=== PATIENT | female | born 1960 | race Caucasian/White ===

== ENCOUNTER 2016-06-16 20:00 | Observation (INO) ==
[2016-06-16] MEDS ORDERED: SODIUM CHLORIDE 0.9% 1,000 ML IV STA (20:59)
[2016-06-16 21:23] LABS: Basophils % 0.7 % (0.0-0.8); Eosinophils % 0.7 % (0.00-10.9); Hematocrit 43.5 VOL% (35.7-47.0); Hemoglobin 14.6 GM/DL (12.0-16.0); Immature Granulocytes % 0.7 %; Immature Granulocytes Absolute 0.04 #; Lymphocytes # 1.4 10*3/uL (1.4-4.0); Lymphocytes % 23.8 % (21.3-54.2); Mean Corpuscular HGB Conc 33.6 GM/DL (32-36); Mean Corpuscular Hemoglobin 29 PG (27-34); Mean Corpuscular Volume 87.2 FL (87-102); Mean Platelet Volume 11.2 FL (9.6-12.0); Monocytes # 0.8 10*3/uL (0.11-0.8); Monocytes % 12.6 % (1.7-12.7); Neutrophils # 3.7 10*3/uL (1.4-7.4); Neutrophils % 61.5 % (38.7-73.9); Platelet Count 247 10*3/uL (130-400); Red Blood Count 4.99 10*6/uL (3.8-5.5); Red Cell Distribution Width 12.7 % (9.3-17.3)
--- NOTE | 2016-06-16 21:50 | XRay Report ---
XR chest 2V Indication: Burning sensation in chest. Comparison: None. Technique: PA and lateral chest x-ray was performed. Findings: The heart size is within normal limits. The mediastinal contour demonstrates no significant abnormality. The lungs are clear. Bones and soft tissues demonstrate no acute abnormality. Impression: 1. No active cardiopulmonary disease. 06/16/2016 9:47 PM PROCEDURE INTERPRETED AT [facility] DEPARTMENT OF RADIOLOGY Final Report Signed by: Dr. Leon Kevin
[2016-06-16 21:51] LABS: Calcium 8.4 MG/DL (8.5-10.1); Free T4 (Free Thyroxine) 1.11 NG/DL (0.76-1.46); Magnesium 2.1 MG/DL (1.8-2.4); Osmolality,Calculated 288.7 MOS/KG (273-304); Potassium 4.1 MMOL/L (3.5-5.1); Thyroid Stimulating Hormone 3.35 uIU/ml (0.358-3.74)
[2016-06-16 21:53] LABS: Troponin I Only 0.061 NG/ML (0.00-0.045)
[2016-06-16] MEDS ORDERED: ASPIRIN 325 MG TABLET PO STA (22:27)
[2016-06-16] MEDS ORDERED: ASPIRIN 325 MG TABLET ONE (22:40)
--- NOTE | 2016-06-16 22:55 | Emergency Department Note ---
Josiah Perez Emily, am scribing for, and in the presence of, Gino Hernandez DO 21: 06. IDavid Sebastian, DO, personally performed the services described in this documentation, ascribed by Ronna Rahman in my presence, and it is both accurate and complete . Arrival - Arrival Chief Complaint: Arrhythmia/Palpitations Stated Complaint: svt ED Nursing Triage Note: pt arrives ems from home, complaint of sudden cp while sitting in chair, states it started in throat radiating to her chest. pt met ems , upon their arrival hr was in 214 range. pt given amiodorone 6 mg and pt immediately converted to normal hr. pt currently complains of no cp. pt seen in clinic 2 days ago and given decadron & arrythmiacin, she was neg for flu/strep. Mode of Arrival: Stretcher Limitations: No Limitations Source: Patient - History of Present Illness HPI Narrative: Pt is a 56 y/o female who came to ED by EMS with c/o sudden rapid heart palpitations and chest pain that started in throat radiating to her chest while sitting on the couch earlier this evening. Pt was seen at , in which given adenosine 6 mg and pt immediately converted to normal heart rate. Pt currently denies chest pain or heart palpitations in ED. Pt seen in clinic on , June 13, 2016, and given decadron & azithromycin, although she was neg for flu/strep. She's never had an episode like this before. She has no smoking history. No family history of cardiac disease. Onset (ago): hour(s) Consistency: intermittent, now resolved Severity: mild Severity scale (1-10): 2 Quality: sharp Allergies/Adverse Reactions: Allergies Allergy/AdvReac Type Severity Reaction Status Date / Time iodine Allergy Difficulty Verified 02/22/15 19:22 Breathing latex Allergy Difficulty Verified 02/22/15 19:22 Breathing Review of System - Review of System 12 point system: reviewed and no additional remarkable complaints except as stated - Review of System Constitutional: Absent: chills, fever Respiratory: Absent: respiratory distress Cardiovascular: Present: chest pain (radiated from neck; now resolved), palpitations (rapid; now resolved) Gastrointestinal: Absent: abdominal pain, nausea, vomiting Musculoskeletal: Present: neck pain (started in neck radiates down to chest; now resolved). Absent: arm pain, back pain, leg pain Skin: Absent: rash Neurological: Absent: headache, numbness, paresthesias, abnormal gait Psychiatric: Absent: anxiety Medical,Surgical,& Family Hx - Medical History Respiratory: History of: Asthma - Social History Smoking Status: Never smoker Frequency of Alcohol Use: None Type of Drug Use: None Exam Vital Signs: Vital Signs Temperature 97.1 F L 06/16/16 20:00 Pulse Rate 111 H 06/16/16 20:00 Respiratory Rate 18 06/16/16 20:00 Blood Pressure 144/93 06/16/16 20:00 O2 Sat by Pulse Oximetry 98 06/16/16 20:00 - General General appearance: alert, in no apparent distress - Head Head exam: Present: atraumatic, normocephalic - Eye Eye exam: Present: PERRL, EOMI - ENT ENT exam: Present: mucous membranes moist. Absent: mucous membranes dry - Neck Neck exam: Present: full ROM. Absent: tenderness - Chest Chest inspection: Present: symmetric chest wall rise. Absent: tenderness - Respiratory Respiratory exam: Present: normal lung sounds bilaterally. Absent: respiratory distress - Cardiovascular Cardiovascular exam: Present: regular rate, normal rhythm, normal heart sounds - Abdominal Exam Abdominal exam: Present: soft. Absent: distention, tenderness - Extremities Exam Extremities exam: Present: full ROM. Absent: tenderness, pedal edema - Neurological Exam Neurological exam: Present: alert, oriented X3. Absent: motor sensory deficit - Psychiatric Psychiatric exam: Present: normal affect, normal mood - Skin Skin exam: Present: warm, dry Course Course Narrative: She has been resting comfortably while in the emergency department. Her initial EKG shows sinus tachycardia, no evidence of LVH. Normal QTC. She has normal O2 sats and normal blood pressure. CBC, BMP, troponin 0.06, TSH otherwise labs unremarkable Chest x-ray neg 1LNS given with improvement in HR to 80s. ASA 325mg given. Heart strain/demand vs questionable CAD. Hospitalist consulted and will admit. Results - Labs CBC & BMP: 06/16/16 21:00 06/16/16 21:00 Lab Results: I have reviewed the patients labs Labs: Laboratory Tests 06/16/16 21:00 Chloride 111 H Anion Gap 15.1 H Glucose 111 H Calcium 8.4 L Troponin I 0.061 H - Diagnostic Findings Procedure: Chest x-ray: report reviewed by me (No active cardiopulmonary disease.) Disposition Clinical Impression: Elevated troponin I level, Tachycardia with greater than 160 beats per minute Case discussed with: patient Condition: Stable
[2016-06-17] MEDS ORDERED: ONDANSETRON 4 MG/2 ML VIAL IV PRN (00:24)
[2016-06-17] MEDS ORDERED: ENOXAPARIN 40 MG/0.4 ML SYRINGE SUBCUT SCH (00:24)
[2016-06-17] MEDS ORDERED: MORPHINE 2 MG/1 ML SYRINGE IV PRN (00:24)
[2016-06-17] MEDS ORDERED: guaiFENesin/DM ER 600-30 MG TABLET PO PRN (00:24)
[2016-06-17] MEDS ORDERED: ZALEPLON 5 MG CAPSULE PO PRN (00:24)
--- NOTE | 2016-06-17 00:45 | Hospitalist History & Physical ---
Assessment and Plan (1) Tachycardia with greater than 160 beats per minute Status: Acute Assessment and plan: The patient is admitted to hospital with tachycardia palpitation. She apparently had supraventricular tachycardia prior to admission. The patient will be observed on telemetry monitoring overnight and have cardiology consultation in the morning. Current Visit: Yes (2) Elevated troponin I level Status: Acute Current Visit: Yes History of Present Illness Chief complaint: palpitations and weakness History of present illness: Ms. Mesa is a 56 year old female with minimal past medical history. The patient was at home in her usual state of health until developing upper respiratory tract infection. She was treated with oral antibiotic and decongestant medication. On the evening of admission the hospital, the patient had sudden onset of tachycardia palpitation without exertion. The symptom was not associated with angina. The patient's symptom was associated with some shortness of breath. The patient was found to have supraventricular tachycardia when the ambulance arrived. The tachycardia was terminated with adenosine and did not recur. The patient was brought to the hospital for further evaluation. The patient's symptom was moderate, continuous, and improved after adenosine. The patient does not recall any previous episodes. Home Medications Medication Instructions Recorded Confirmed Type Azithromycin Tab [Zithromax Tab] 250 mg PO DAILY 06/17/16 06/17/16 History Allergies Allergy/AdvReac Type Severity Reaction Status Date / Time iodine Allergy Difficulty Verified 02/22/15 19:22 Breathing latex Allergy Difficulty Verified 02/22/15 19:22 Breathing Medical,Surgical,& Family Hx - Medical History Respiratory: History of: Asthma - Family History Family History: Reports;: Family Hypertension - Social History Smoking Status: Never smoker Frequency of Alcohol Use: None Type of Drug Use: None Marital Status: Lives With:: Spouse Functional capacity: independent ambulation 12 point system: reviewed and no additional remarkable complaints except as stated Exam - Constitutional Vitals: Period Temp Pulse Resp BP Sys/Maher Pulse Ox Last 24 Hr 98.4 F 74 18 128/74 96 Exam: Constitutional System: No distress. No tremulousness. Head: Normocephalic, atraumatic. Ears, Nose and Throat System: No evidence of Otitis or Mastoiditis. No epistaxis or discharge Eyes System: Pupils equal, round, and reactive. Extraocular muscles intact. Neck: Supple, without adenopathy, No jugular venous distention. No thyromegaly , neck mass, or prior surgery apparent. Respiratory System: Chest clear to auscultation. Cardiovascular System: Heart with regular rate and rhythm. No murmur. GI System: Abdomen soft, nontender. Normoactive bowel sounds present. Musculoskeletal System: limbs with no pedal edema. Full distal pulses. Neurological System: No discernable sensory deficit. No aphasia Psychiatric System: Conversation is rational Results - Labs CBC & BMP: 06/16/16 21:00 06/16/16 21:00 Lab Results: I have reviewed the past 24 hour labs - EKG EKG results: sinus rhythm Quality Measures - Stroke Onset of Symptoms Date: 06/16/16 Onset of Symptoms Time: 19:30
[2016-06-17] MEDS: SODIUM CHLORIDE 0.9% 1,000 ML IV SCH ×2 (00:58→16:10)
[2016-06-17 04:54] LABS: Basophils % 0.6 % (0.0-0.8); Eosinophils % 0.8 % (0.00-10.9); Hematocrit 39.6 VOL% (35.7-47.0); Hemoglobin 13.2 GM/DL (12.0-16.0); Immature Granulocytes Absolute 0.05 #; Lymphocytes # 1.6 10*3/uL (1.4-4.0); Lymphocytes % 33.3 % (21.3-54.2); Mean Corpuscular HGB Conc 33.3 GM/DL (32-36); Mean Corpuscular Hemoglobin 30 PG (27-34); Mean Corpuscular Volume 89.2 FL (87-102); Mean Platelet Volume 11.6 FL (9.6-12.0); Monocytes # 0.6 10*3/uL (0.11-0.8); Monocytes % 11.9 % (1.7-12.7); Neutrophils # 2.6 10*3/uL (1.4-7.4); Neutrophils % 52.4 % (38.7-73.9); Platelet Count 203 10*3/uL (130-400); Red Blood Count 4.44 10*6/uL (3.8-5.5); Red Cell Distribution Width 12.8 % (9.3-17.3); White Blood Count 4.9 10*3/uL (4.5-13.71)
[2016-06-17 05:01] LABS: Calcium 7.9 MG/DL (8.5-10.1); Magnesium 2.3 MG/DL (1.8-2.4); Osmolality,Calculated 288.6 MOS/KG (273-304); Potassium 4.1 MMOL/L (3.5-5.1)
[2016-06-17 05:06] LABS: Troponin I Only 0.287 NG/ML (0.00-0.045)
--- NOTE | 2016-06-17 08:59 | Cardiology Consult Note ---
Assessment and Plan (1) Elevated troponin I level Status: Acute Assessment and plan: 1. 56-year-old previously healthy WF with recent URI (3-4 days ago for which she received antibiotics and steroid shot) who developed palpitations associated with mild chest and neck discomfort and dizziness without presyncope or syncope; she reportedly had SVT converted with adenosine by staple fiber washer (no strips or report are available); the patient overheard that her heart rate was 215 beats minute. She reports the duration of her symptoms were only about 20 minutes or so, and she has no previous history of palpitations presyncope or syncope. 2. This sounds like SVT, since it reportedly converted with adenosine; a mild troponin elevation would be expected if indeed her rate was 215 beats per minute 3. Moderate to heavy caffeine use (3 cups of coffee and 32 units of green tea per day); significantly reduce caffeine intake 4. Previous borderline hypertension, which is relatively normal now 5. Start low-dose long-acting Cardizem CD 120 mg daily 6. Probable mild asthma, she reports wheezing each time she gets a cold 7. Family history of early CAD (father of heart attack in his early 40s) 8. Check lipid panel this morning's lab, consider statin therapy 9. Baby aspirin daily 10. She can be discharged from a cardiac standpoint this afternoon or in the morning, after we make sure she tolerates her Cardizem and does not have recurrence 11. Normal TSH is noted 12. Would schedule exercise myocardial scan in approximately one to 2 weeks when her respiratory illness has resolved given her risk factors 13. Try to obtain EMT report and strips if possible Current Visit: Yes (2) Tachycardia with greater than 160 beats per minute Status: Acute Current Visit: Yes History of Present Illness - Consult Narrative History of present illness: Ms. Mesa is a 56 year old female with no real past medical history who went to the [place] clinic a few days ago due to "feeling feverish, I can tell something was coming on" Rocephin, erythromycin, and Decadron shot by her report. She did eventually develop some cough, but is not taking decongestants. She was sitting on the couch and developed palpitations with discomfort mainly in her throat, but also some mild chest discomfort. She denies any shortness of breath. She did have dizziness but not syncope. She reports the staple fiber washer gave her medicine and it resolved. She reports that she heard that her heart was beating "215 beats minute". There are no strips available. She has had no symptoms since the episode last night. She drinks about 3 cups of coffee today but also about 32 ounces of green tea. She is not a tobacco user. She denies any previous similar episodes. CC: Chucky Sahu MD - Home Medications and Allergies Home Medications: Home Medications Medication Instructions Recorded Confirmed Type Azithromycin Tab [Zithromax Tab] 250 mg PO DAILY 06/17/16 06/17/16 History Allergies/Adverse Reactions: Allergies Allergy/AdvReac Type Severity Reaction Status Date / Time iodine Allergy Difficulty Verified 02/22/15 19:22 Breathing latex Allergy Difficulty Verified 02/22/15 19:22 Breathing Medical,Surgical,& Family Hx - Medical History Respiratory: History of: Asthma - Family History Family History: Reports;: Family Hypertension - Social History Smoking Status: Never smoker Frequency of Alcohol Use: None Type of Drug Use: None Physical Examination Vital Signs Temp Pulse Resp BP Pulse Ox 97.1 F L 111 H 18 144/93 98 06/16/16 20:00 06/16/16 20:00 06/16/16 20:00 06/16/16 20:00 06/16/16 20:00 General: Present: Appears Well, No Apparent Distress Neck: Present: Supple Neck, No JVD/HJR Cardiac: Present: Reg Rate and Rhythm, Regular Rate, Regular Rhythm Lungs: Present: Normal Exam, Clear Ascult./Percussion, Normal Breath Sounds Abdomen: Present: Soft Gait: Present: Normal Gait Extremities: Present: No Edema Result/EKG - Labs CBC & BMP: 06/17/16 02:04 06/17/16 02:04 Labs: Laboratory Results - last 24 hr 06/17/16 06/17/16 06/17/16 02:04 02:04 02:04 WBC 4.9 RBC 4.44 Hgb 13.2 Hct 39.6 MCV 89.2 MCH 30 MCHC 33.3 RDW 12.8 Plt Count 203 MPV 11.6 Neut % (Auto) 52.4 Lymph % (Auto) 33.3 [place] % (Auto) 11.9 Eos % (Auto) 0.8 Baso % (Auto) 0.6 Neut # (Auto) 2.6 Lymph # (Auto) 1.6 [place] # (Auto) 0.6 Eos # (Auto) 0.0 Baso # (Auto) 0.0 Immature Gran % 1.0 Nucleated RBC % 0.0 Immature Gran # 0.05 Nucleated RBCs # 0.00 Sodium 146 H Potassium 4.1 Chloride 113 H Carbon Dioxide 22 Anion Gap 15.1 H BUN 12 Creatinine 0.60 GFR Calculation 104 BUN/Creatinine Ratio 20.00 Glucose 86 Calculated Osmolality 288.6 Calcium 7.9 L Magnesium 2.3 Total Creatine Kinase 56 Troponin I 0.287 H D B-Natriuretic Peptide 26 TSH 3rd Generation 06/17/16 02:04 WBC RBC Hgb Hct MCV MCH MCHC RDW Plt Count MPV Neut % (Auto) Lymph % (Auto) [place] % (Auto) Eos % (Auto) Baso % (Auto) Neut # (Auto) Lymph # (Auto) [place] # (Auto) Eos # (Auto) Baso # (Auto) Immature Gran % Nucleated RBC % Immature Gran # Nucleated RBCs # Sodium Potassium Chloride Carbon Dioxide Anion Gap BUN Creatinine GFR Calculation BUN/Creatinine Ratio Glucose Calculated Osmolality Calcium Magnesium Total Creatine Kinase Troponin I B-Natriuretic Peptide TSH 3rd Generation 2.380 - EKG EKG results: sinus rhythm Quality Measures - Stroke Onset of Symptoms Date: 06/16/16 Onset of Symptoms Time: 19:30 Specialty Discharge - Follow Up or Referrals Follow up with: Angelito Nicole MD [Physician] - 2 Weeks (Schedule exercise myocardial scan at [facility] 5-10 days; she should be nothing by mouth after midnight with no caffeine the evening before.) - Discharge Medications No Action Azithromycin Tab [Zithromax Tab] 250 mg PO DAILY
[2016-06-17] MEDS ORDERED: DILTIAZEM CD 120 MG CAPSULE PO SCH (09:00)
[2016-06-17] MEDS ORDERED: PANTOPRAZOLE 40 MG TABLET PO SCH (09:00)
[2016-06-17] MEDS ORDERED: ASPIRIN CHEW 81 MG TABLET PO SCH (09:00)
--- NOTE | 2016-06-17 09:19 | EKG Report ---
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
[2016-06-17 10:05] LABS: Risk Ratio 2.51; VLDL CHOLESTEROL 9.8 MG/DL
--- NOTE | 2016-06-17 10:52 | EKG Report ---
Stationary ECG Study [facility] Test Date: 06/16/2016 8:20:28 PM Pat Name: RENETTA OTT Department: Room: 285 Gender: F Contact Center Team Lead: : 1960 Requested by: Gino Hernandez Order Number: [id number] Michelle MD: KAMLA EDOUARD Intervals [place] Rate: 106 P: 49 NH: 136 QRS: -21 QRSD: 86 T: 80 QT: 336 QTc: 398 Interpretive Statements SINUS TACHYCARDIA LEFT AXIS DEVIATION ABNORMAL RHYTHM ECG Electronically Signed On 06-17-16 10:56:36 BLOCKER AND POLISHER by KAMLA EDOUARD [email or web address]
--- NOTE | 2016-06-17 13:30 | Event Note ---
Patient seen and examined. We were unable to obtain the strip from ENT we're she is found to have SVT and was converted with add Unasyn. Her troponin is mildly elevated. Cardiology feels this is probably from SVT. I've ordered another troponin. If it's downtrending and cardiology agrees then she'll be discharged home. If troponin still high may watch her for one night
--- NOTE | 2016-06-17 16:09 | Discharge Summary ---
Hospital Course - Hospital Course Hospital Course: Admitted earlier today with episode of svt which was converted with adenosine in the ambulance. Seen in consultation by cardiology. They have started the patient on diltiazem that she has tolerated well. The rise in troponin is felt to be sec to svt and cardiology has cleared her for discharge. They plan to do an out patient stress study once her URI is better. Repeat troponin is down trending. Will discharge per their recommendation. Specialty Discharge - Follow Up or Referrals Follow up with: Angelito Nicole MD [Physician] - 2 Weeks (Schedule exercise myocardial scan at [facility] 5-10 days; she should be nothing by mouth after midnight with no caffeine the evening before.) - Discharge Medications No Action Azithromycin Tab [Zithromax Tab] 250 mg PO DAILY Discharge Plan - Discharge Medications New Aspirin Chew Tab 81 mg PO DAILY #30 tablet Diltiazem Cd Cap [Cardizem CD] 120 mg PO DAILY #30 capsule Continue Azithromycin Tab [Zithromax Tab] 250 mg PO DAILY - Follow Up or Referral Follow Up: Angelito Nicole MD [Physician] - 2 Weeks (Schedule exercise myocardial scan at [facility] 5-10 days; she should be nothing by mouth after midnight with no caffeine the evening before.) - Forms/Instructions Instructions: Diltiazem (By mouth), Supraventricular Tachycardia (DC) Exam - Constitutional Vitals: Period Temp Pulse Resp BP Sys/Maher Pulse Ox Last 24 Hr 97.1 F-98.4 F 65-82 16-20 115-151/66-78 95-98 Discharge Results Labs on day of discharge: Labs from last 24 hours 06/17/16 06/17/16 06/17/16 13:24 04:00 02:04 WBC RBC Hgb Hct MCV MCH MCHC RDW Plt Count MPV Neut % (Auto) Lymph % (Auto) [place] % (Auto) Eos % (Auto) Baso % (Auto) Neut # (Auto) Lymph # (Auto) [place] # (Auto) Eos # (Auto) Baso # (Auto) Immature Gran % Nucleated RBC % Immature Gran # Nucleated RBCs # Sodium Potassium Chloride Carbon Dioxide Anion Gap BUN Creatinine GFR Calculation BUN/Creatinine Ratio Glucose Calculated Osmolality Calcium Magnesium Total Creatine Kinase Troponin I 0.103 H D B-Natriuretic Peptide Triglycerides 49 Cholesterol 148 LDL Cholesterol 98.0 VLDL Cholesterol 9.8 HDL Cholesterol 59 Heart Disease Risk Ratio 2.51 TSH 3rd Generation 2.380 06/17/16 06/17/16 06/17/16 02:04 02:04 02:04 WBC 4.9 RBC 4.44 Hgb 13.2 Hct 39.6 MCV 89.2 MCH 30 MCHC 33.3 RDW 12.8 Plt Count 203 MPV 11.6 Neut % (Auto) 52.4 Lymph % (Auto) 33.3 [place] % (Auto) 11.9 Eos % (Auto) 0.8 Baso % (Auto) 0.6 Neut # (Auto) 2.6 Lymph # (Auto) 1.6 [place] # (Auto) 0.6 Eos # (Auto) 0.0 Baso # (Auto) 0.0 Immature Gran % 1.0 Nucleated RBC % 0.0 Immature Gran # 0.05 Nucleated RBCs # 0.00 Sodium 146 H Potassium 4.1 Chloride 113 H Carbon Dioxide 22 Anion Gap 15.1 H BUN 12 Creatinine 0.60 GFR Calculation 104 BUN/Creatinine Ratio 20.00 Glucose 86 Calculated Osmolality 288.6 Calcium 7.9 L Magnesium 2.3 Total Creatine Kinase 56 Troponin I 0.287 H D B-Natriuretic Peptide 26 Triglycerides Cholesterol LDL Cholesterol VLDL Cholesterol HDL Cholesterol Heart Disease Risk Ratio TSH 3rd Generation DS: Provider Date of admission: 06/16/16 22:44 Primary care physician: Bran Estrada MD Attending physician on admission: Chucky Sahu MD Consults: 06/17/16 00:24 Consult to Physician [CONS] Routine Comment: psvt Consulting Provider: Rashmi Calvo Discharging clinician: Chucky Sahu MD
[2016-06-17 16:10] VITALS: BP 128/68
== END 2016-06-17 16:48 | disposition home or self-care (01) ==
LOC: EDBD → EDUNIT# → N.ED 20:00 → N.EDINP 20:00 → N.TELEN 23:08
PROVIDERS: ADMIT Internal Medicine; ATTEND Internal Medicine

== ENCOUNTER 2018-09-03 13:24 | Observation (INO) ==
[2018-09-03] MEDS ORDERED: ASPIRIN 325 MG TABLET PO STA (13:52)
[2018-09-03 14:43] LABS: Basophils # 0.1 10*3/uL (0.0-0.2); Basophils % 0.7 % (0.0-0.8); Eosinophils # 0.4 10*3/uL (0.0-0.87); Eosinophils % 3.3 % (0.00-10.9); Hematocrit 44.5 VOL% (35.7-47.0); Hemoglobin 14.1 GM/DL (12.0-16.0); Immature Granulocytes % 0.6 %; Immature Granulocytes Absolute 0.06 #; Lymphocytes # 1.8 10*3/uL (1.4-4.0); Lymphocytes % 16.9 % (21.3-54.2); Mean Corpuscular HGB Conc 31.7 GM/DL (32-36); Mean Corpuscular Hemoglobin 29 PG (27-34); Mean Corpuscular Volume 92.5 FL (87-102); Mean Platelet Volume 10.8 FL (9.6-12.0); Monocytes # 0.7 10*3/uL (0.11-0.8); Monocytes % 6.4 % (1.7-12.7); Neutrophils # 7.7 10*3/uL (1.4-7.4); Neutrophils % 72.1 % (38.7-73.9); Platelet Count 296 T/CUMM (130-400); Red Blood Count 4.81 MC/CUMM (3.8-5.5); Red Cell Distribution Width 12.5 % (9.3-17.3); White Blood Count 10.8 T/CUMM (4-12)
[2018-09-03 15:03] LABS: Albumin 3.6 G/DL (3.4-5.0); Bilirubin,Total 0.4 MG/DL (0.2-1.0); Calcium 8.9 MG/DL (8.5-10.1); Osmolality,Calculated 281.1 MOS/KG (273-304); Potassium 3.9 MMOL/L (3.5-5.1); Total Protein 7.1 G/DL (6.4-8.3)
[2018-09-03] MEDS ORDERED: ONDANSETRON 4 MG/2 ML VIAL IV PRN (15:48)
[2018-09-03] MEDS ORDERED: ACETAMINOPHEN 325 MG TABLET PO PRN (15:48)
[2018-09-03] MEDS ORDERED: BUDESONIDE/FORMOTEROL 160-4.5 INHALER 6 GM INH PRN (18:44)
[2018-09-03] MEDS ORDERED: hydrALAZINE 20 MG/1 ML VIAL IV PRN (20:26)
[2018-09-04 05:56] LABS: Alanine Aminotransferase 51 U/L (13-56); Albumin 3.3 G/DL (3.4-5.0); Alkaline Phosphatase 91 U/L (45-117); Aspartate Amino Transferase 37 U/L (0-37); Bilirubin,Direct < 0.100 MG/DL (0.0-0.20); Bilirubin,Indirect 1.1 MG/DL (0.0-1.0); Blood Urea Nitrogen 10 MG/DL (7-18); Calcium 8.5 MG/DL (8.5-10.1); Glucose 89 MG/DL (74-106); Osmolality,Calculated 283.8 MOS/KG (273-304); Potassium 3.9 MMOL/L (3.5-5.1); Sodium 144 MMOL/L (136-145); Total Protein 6.6 G/DL (6.4-8.3)
[2018-09-04] MEDS: MONTELUKAST 10 MG TABLET PO SCH (08:44)
[2018-09-04 10:54] LABS: Troponin I 0.669 NG/ML (0.00-0.045)
[2018-09-04] MEDS: ASPIRIN EC 81 MG TABLET PO SCH (11:11)
[2018-09-04] MEDS ORDERED: MAGNESIUM SULF RIDER 2 GM in PREMIX 1 EACH IV PRN (15:53)
[2018-09-04] MEDS ORDERED: POTASSIUM CHLORIDE RIDER 10 MEQ in PREMIX 1 EACH IV PRN (15:53)
[2018-09-04] MEDS: diphenhydrAMINE CAP 25 MG CAPSULE PO SCH ×2 (17:14→22:28)
[2018-09-04] MEDS: FAMOTIDINE 20 MG/2 ML VIAL IV SCH (17:14)
[2018-09-04] MEDS: methylPREDNISolone SOD SUC 125 MG/2 ML VIAL IV SCH ×2 (17:15→22:28)
[2018-09-05] MEDS: SODIUM CHLORIDE 0.45% 1,000 ML IV SCH ×2 (02:50→12:04)
[2018-09-05] MEDS: diphenhydrAMINE CAP 25 MG CAPSULE PO SCH ×2 (04:40→09:51)
[2018-09-05] MEDS: FAMOTIDINE 20 MG/2 ML VIAL IV SCH (04:40)
[2018-09-05] MEDS: methylPREDNISolone SOD SUC 125 MG/2 ML VIAL IV SCH ×2 (04:42→09:41)
[2018-09-05 05:15] LABS: Basophils % 0.2 % (0.0-0.8); Hematocrit 44.6 VOL% (35.7-47.0); Hemoglobin 14.8 GM/DL (12.0-16.0); Immature Granulocytes % 0.6 %; Immature Granulocytes Absolute 0.07 #; Lymphocytes # 1.2 10*3/uL (1.4-4.0); Lymphocytes % 10.8 % (21.3-54.2); Mean Corpuscular HGB Conc 33.2 GM/DL (32-36); Mean Corpuscular Hemoglobin 30 PG (27-34); Mean Corpuscular Volume 89.9 FL (87-102); Mean Platelet Volume 10.9 FL (9.6-12.0); Monocytes # 0.1 10*3/uL (0.11-0.8); Monocytes % 0.4 % (1.7-12.7); Neutrophils # 9.9 10*3/uL (1.4-7.4); Platelet Count 327 T/CUMM (130-400); Red Blood Count 4.96 MC/CUMM (3.8-5.5); Red Cell Distribution Width 12.1 % (9.3-17.3); White Blood Count 11.3 T/CUMM (4-12)
[2018-09-05] MEDS ORDERED: DIAZEPAM 5 MG TABLET ONE (05:39)
[2018-09-05 05:45] LABS: Calcium 9.1 MG/DL (8.5-10.1); Osmolality,Calculated 284.3 MOS/KG (273-304)
[2018-09-05] MEDS ORDERED: NITROGLYCERIN DRIP 50 MG/250 ML BOTTLE IV ONE (06:56)
[2018-09-05] MEDS ORDERED: MIDAZOLAM 2 MG/2 ML VIAL ONE (06:57)
[2018-09-05] MEDS ORDERED: VERAPAMIL 5 MG/2 ML VIAL ONE (06:57)
[2018-09-05] MEDS ORDERED: HYDROmorphone 2 MG/1 ML VIAL ONE (06:57)
[2018-09-05] MEDS ORDERED: DIAZEPAM 5 MG TABLET PO ONE (07:00)
[2018-09-05] MEDS ORDERED: diphenhydrAMINE CAP 25 MG CAPSULE PO ONE (07:00)
[2018-09-05] MEDS ORDERED: ENOXAPARIN 60 MG/0.6 ML SYRINGE ONE (07:12)
[2018-09-05] MEDS ORDERED: VERAPAMIL SR 120 MG TABLET PO SCH ×2 (09:00→21:00)
[2018-09-05] MEDS: ASPIRIN EC 81 MG TABLET PO SCH (09:41)
[2018-09-05] MEDS: MONTELUKAST 10 MG TABLET PO SCH (09:41)
[2018-09-05 12:13] LABS: Risk Ratio 3.21; VLDL CHOLESTEROL 14.4 MG/DL
[2018-09-05 13:27] VITALS: BP 137/77
== END 2018-09-05 13:59 | disposition home or self-care (01) ==
LOC: N.EDINP 13:24 → N.ED 13:24 → N.EDINP 18:34 → N.TELES 18:59
PROVIDERS: ADMIT Family Medicine; ATTEND Family Medicine
PROC: CLCCHCL (ICD-10-PCS; 2018-09-05 07:15)

== ENCOUNTER 2020-04-17 20:45 | Observation (INO) ==
[2020-04-17] MEDS ORDERED: ALUM/MAG/SIMETH/LIDO VISC 1:1 30 ML BOTTLE PO STA (21:20)
[2020-04-17] MEDS ORDERED: NITROGLYCERIN 2% OINT 1 INCH/GM PACK TOP STA (21:20)
[2020-04-17] MEDS ORDERED: MORPHINE 4 MG/1 ML VIAL IV STA (21:20)
[2020-04-17] MEDS ORDERED: ONDANSETRON 4 MG/2 ML VIAL IV STA (21:20)
[2020-04-17] MEDS ORDERED: ASPIRIN 325 MG TABLET PO STA (21:20)
[2020-04-17 21:25] LABS: Basophils # 0.1 10*3/uL (0.0-0.2); Basophils % 0.9 % (0.0-0.8); Eosinophils # 0.5 10*3/uL (0.0-0.87); Eosinophils % 5.6 % (0.00-10.9); Hematocrit 37.7 VOL% (35.7-47.0); Hemoglobin 12.8 GM/DL (12.0-16.0); Immature Granulocytes % 0.5 %; Immature Granulocytes Absolute 0.04 #; Lymphocytes # 2.8 10*3/uL (1.4-4.0); Lymphocytes % 32.7 % (21.3-54.2); Mean Corpuscular Volume 91.5 FL (87-102); Mean Platelet Volume 10.3 FL (9.6-12.0); Monocytes % 9.3 % (1.7-12.7); Platelet Count 315 T/CUMM (130-400); Red Blood Count 4.12 MC/CUMM (3.8-5.5); Red Cell Distribution Width 12.1 % (9.3-17.3); White Blood Count 8.4 T/CUMM (4-12)
[2020-04-17 21:34] LABS: PT Patient Result 10.4 SECS (9.8-11.9)
[2020-04-17 21:41] LABS: Alanine Aminotransferase 17 U/L (13-56); Albumin 3.5 G/DL (3.4-5.0); Alkaline Phosphatase 84 U/L (45-117); Aspartate Amino Transferase 12 U/L (0-37); Bilirubin,Total < 0.39 MG/DL (0.2-1.0); Blood Urea Nitrogen 15 MG/DL (7-18); Calcium 8.7 MG/DL (8.5-10.1); Estimated Glom Filtration Rate 60 ML/MIN; Glucose 130 MG/DL (74-106); Osmolality,Calculated 285.1 MOS/KG (273-304); Total Protein 6.6 G/DL (6.4-8.3)
[2020-04-17] MEDS ORDERED: ACETAMINOPHEN 325 MG TABLET PO PRN (23:10)
[2020-04-17] MEDS ORDERED: ONDANSETRON 4 MG/2 ML VIAL IV PRN (23:10)
[2020-04-17] MEDS ORDERED: SODIUM CHLORIDE 0.9% 1,000 ML IV SCH (23:10)
[2020-04-17] MEDS: NITROGLYCERIN 2% OINT 1 INCH/GM PACK TOP SCH (23:58)
[2020-04-17] MEDS: MORPHINE 4 MG/1 ML VIAL IV PRN (23:59)
[2020-04-18] MEDS: MORPHINE 4 MG/1 ML VIAL IV PRN (03:16)
[2020-04-18 04:18] LABS: Basophils # 0.1 10*3/uL (0.0-0.2); Basophils % 1.2 % (0.0-0.8); Eosinophils # 0.4 10*3/uL (0.0-0.87); Eosinophils % 6.8 % (0.00-10.9); Hemoglobin 11.9 GM/DL (12.0-16.0); Immature Granulocytes % 0.5 %; Immature Granulocytes Absolute 0.03 #; Lymphocytes # 1.9 10*3/uL (1.4-4.0); Lymphocytes % 32.1 % (21.3-54.2); Mean Corpuscular HGB Conc 33.1 GM/DL (32-36); Mean Corpuscular Volume 93.3 FL (87-102); Mean Platelet Volume 10.4 FL (9.6-12.0); Monocytes % 7.2 % (1.7-12.7); Neutrophils % 52.2 % (38.7-73.9); Platelet Count 281 T/CUMM (130-400); Red Blood Count 3.86 MC/CUMM (3.8-5.5); White Blood Count 5.9 T/CUMM (4-12)
[2020-04-18 04:34] LABS: Alanine Aminotransferase 15 U/L (13-56); Albumin 3.1 G/DL (3.4-5.0); Alkaline Phosphatase 75 U/L (45-117); Aspartate Amino Transferase 12 U/L (0-37); Bilirubin,Total < 0.39 MG/DL (0.2-1.0); Blood Urea Nitrogen 15 MG/DL (7-18); Calcium 8.4 MG/DL (8.5-10.1); Estimated Glom Filtration Rate 82 ML/MIN; Glucose 89 MG/DL (74-106); HDL Cholesterol 70 MG/DL (40-60); Risk Ratio 2.04; Total Protein 6.3 G/DL (6.4-8.3); Triglycerides 65 MG/DL (2-150)
[2020-04-18] MEDS: NITROGLYCERIN 2% OINT 1 INCH/GM PACK TOP SCH ×2 (06:00→13:12)
[2020-04-18] MEDS ORDERED: BUDESONIDE/FORMOTEROL 160-4.5 INHALER 6 GM INH SCH (08:13)
[2020-04-18] MEDS ORDERED: OLMESARTAN 5 MG TABLET PO SCH (09:00)
[2020-04-18] MEDS ORDERED: DOCUSATE SODIUM 100 MG CAPSULE PO SCH (09:00)
[2020-04-18] MEDS ORDERED: ASPIRIN EC 325 MG TABLET PO SCH (09:00)
[2020-04-18] MEDS ORDERED: MONTELUKAST 10 MG TABLET PO SCH (09:00)
[2020-04-18] MEDS ORDERED: PANTOPRAZOLE 40 MG TABLET PO SCH (09:00)
[2020-04-18] MEDS ORDERED: VERAPAMIL SR 120 MG TABLET PO SCH (09:00)
[2020-04-18] MEDS ORDERED: ENOXAPARIN 80 MG/0.8 ML SYRINGE SUBCUT SCH (09:00)
[2020-04-18 12:06] VITALS: BP 119/71
== END 2020-04-18 14:58 | disposition home or self-care (01) ==
LOC: N.EDINP 20:45 → N.ED 20:45 → N.TELEN 23:17
PROVIDERS: ADMIT Family Medicine; ATTEND Family Medicine